=== PATIENT | male | born 1950 | race Caucasian/White ===

== ENCOUNTER → 2016-06-29 07:44 | Outpatient (CLI) | payer MEDICARE ==
[2016-06-29 08:10] LABS: BASOPHILS 0.2 % (0.0-2.0); EOSINOPHILS 4.2 % (0-7); HEMOGLOBIN 14.5 g/dL (13.5-17.5); IMMATURE GRANULOCYTES 0.2 % (0-5); LYMPHOCYTES 29.9 % (15-50); MCH 30.2 pg (26.0-34.0); MCHC 33.7 g/dL (31.0-37.0); MCV 89.6 fL (80.0-100.0); MEAN PLATELET VOLUME 9.9 fL (7.4-10.4); MONOCYTES 12.1 % (2-11); NEUTROPHILS 53.4 % (40-80); PLATELET COUNT 167 10x3/uL (130-400); RDW 12.8 % (11.5-14.5)
[2016-06-29 08:43] LABS: ALBUMIN 3.9 g/dL (3.4-5.0); ANION GAP 11.2 mmol/L (8-16); BILIRUBIN - TOTAL 0.48 mg/dL (0.2-1.3); CALCIUM 9.1 mg/dL (8.5-10.1); CARBON DIOXIDE 30.2 mmol/L (21.0-32.0); CREATININE - SERUM 1.4 mg/dL (0.6-1.3); POTASSIUM - SERUM 4.4 mmol/L (3.5-5.1); PROTEIN - SERUM 6.7 g/dL (6.4-8.2)
== END | disposition home or self-care (01) ==
LOC: D.US 07:44
PROVIDERS: Internal Medicine Gastroenterology
DX: R10.11 Right upper quadrant pain (principal); K21.9 Gastro-esophageal reflux disease without esophagitis; R11.0 Nausea

== ENCOUNTER → 2016-07-09 11:38 | Outpatient (CLI) | payer MEDICARE | END | disposition home or self-care (01) | LOC: D.NM 08:00 | DX: K21.9 Gastro-esophageal reflux disease without esophagitis (principal); R10.9 Unspecified abdominal pain; R11.0 Nausea ==

== ENCOUNTER → 2016-09-20 07:49 | Outpatient (CLI) | payer MEDICARE | END | disposition home or self-care (01) | LOC: D.RAD 07:49 | DX: K21.9 Gastro-esophageal reflux disease without esophagitis (principal) ==

== ENCOUNTER 2016-10-28 05:09 | Day surgery (SDC) | payer MEDICARE ==
[~2016-10-28] VITALS: Ht 177.8 cm; Wt 65.8 kg
[2016-10-28] VITALS (11 sets, daily range): BP systolic 95–150; BP diastolic 42–88; BMI 23.7; BMI 20.8
--- NOTE | ~2016-10-28 | OP ---
PATIENT NAME: IKER EPPERSNO MEDICAL RECORD: [id number] :52 LOCATION:D.[id number] ADMISSION DATE: SURGEON: BIB EVERETT MD DATE OF OPERATION: 10/28/2016 PREOPERATIVE DIAGNOSIS: Gastroesophageal reflux disease. POSTOPERATIVE DIAGNOSIS: Gastroesophageal reflux disease. PROCEDURE: Laparoscopic Matthias fundoplication. SURGEON: Bib Everett MD REPORT OF PROCEDURE: The patient's abdomen was prepped and draped in sterile fashion. An OG tube was placed. A Veress needle was inserted in the left upper quadrant and abdomen was insufflated. An 11-mm Visiport trocar was inserted in the midline just above the umbilicus. Once inside, I could see the Veress needle and there was no sign of any injury to bowel or surrounding structures. This needle was removed. A 12-mm trocar was placed in the left subcostal region. A 5-mm trocar was placed in the epigastrium. A 5-mm trocar was placed in the left lateral abdomen and a final 5-mm trocar was placed in the right lateral abdomen. The liver retractor was inserted and the left lobe of the liver was elevated. The patient had no sign of a hiatal hernia. We began taking down the lesser omentum using Harmonic scalpel. We continued this dissection all the way to the left side of the right melinda. We continued our dissection around the diaphragmatic hiatus and continued anteriorly and posteriorly as far as possible. We then approached the greater curvature of the stomach and took down the short gastric using Harmonic scalpel. We continued this to the left side of the right melinda. At this point, we had a 360-degree inspection of the patient's esophagus. The esophageal hiatus was reapproximated with interrupted 0 Ti-Cron times 3. We then performed a posterior 360 degree wrap of the fundus around the distal end of the esophagus. This was done with interrupted 0 Polydek times 3. The top and bottom sutures incorporated a bite of the esophagus. The wrap appeared to be in good position and did not appear to be too tight. The OG tube was removed with ease. There was no sign of any active bleeding. We irrigated out the abdomen. At the conclusion, we took out the liver retractor and then closed the 11 and 12-mm trocar site fascias using interrupted 0 Vicryls using a Ramon-Susie suture passer device. The ports and insufflation were then removed and we infused a total of 10 mL of 0.25% Marcaine with epinephrine into the surrounding tissues and then closed the skin incision with subcutaneous 5-0 Monocryl. COMPLICATIONS: None. CONDITION: Stable. ANESTHESIA: General endotracheal and local. BLOOD LOSS: Minimal. TRANSINT:[id number] Voice Confirmation ID: [id number] DOCUMENT ID: [id number] OPERATIVE REPORT [id number] IKER EPPERSON CHRISTIAN MD CC: KAYODE CARNEY MD and DION OWENS DO [id number] DICTATION DATE: 10/28/1653 CHURCH ADMINISTRATOR: 10/28/161928 [facility] [address] [place] [address]
[~2016-10-28 05:09] MED LIST: CARAFATE1 G PO; CYMBALTA60 MG PO; OMEPRAZOLE40 MG PO
[2016-10-28 06:09] LABS: BASOPHILS 0.2 % (0-2); EOSINOPHILS 4.5 % (0-7); HEMATOCRIT 42.3 % (42.0-54.0); HEMOGLOBIN 13.9 g/dL (13.5-17.5); IMMATURE GRANULOCYTES 0.2 % (0-5); LYMPHOCYTES 31.5 % (15-50); MCH 29.8 pg (26.0-34.0); MCHC 32.9 g/dL (31.0-37.0); MCV 90.6 fL (80.0-100.0); MONOCYTES 13.4 % (2-11); NEUTROPHILS 50.2 % (40-80); PLATELET COUNT 178 10x3/uL (130-400); RBC 4.67 10x6/uL (4.20-6.10); RDW 13.1 % (11.5-14.5); WBC 5.4 10x3/uL (4.8-10.8)
[2016-10-28 06:23] LABS: ANION GAP 11.3 mmol/L (8-16); CALCIUM 8.6 mg/dL (8.5-10.1); CREATININE - SERUM 1.5 mg/dL (0.6-1.3); POTASSIUM - SERUM 4.3 mmol/L (3.5-5.1)
--- NOTE | 2016-10-28 11:23 | NUR ---
RECIEVED TO ROOM VIA RECOVERY ROOM TEAM VIA STRETCHER. PT AROUSABLE TO VERBAL STIMULI. VS WNL HAS O2 AT 4 LPM SAT 97%
--- NOTE | 2016-10-28 11:28 | NUR ---
DR ZHAO AT BEDSIDE. HE REVIEWED 02 STATUS AND ORDERED A DUONEB UPDRAFT. PATIENT TOLERATED THIS WELL. O2 STATUS IMPROVED 98% POST UPDRAFT.
--- NOTE | 2016-10-28 11:59 | NUR ---
REPORT RECEIVED FROM ELENO SHI. HISTORY AND PHARMACY OBTAINED FROM PATIENT AND PLACED IN CHART. SCDs PLACED TO BLE. IN ROOM. CALL LIGHT IN REACH. WILL CONTINUE WITH PLAN OF CARE. ALSO PLACED NON-TELLER SOCKS ON.
--- NOTE | 2016-10-28 12:22 | NUR ---
URINAL GIVEN TO PATIENT. O2 DOWN TO 2.5L PER NC. O2 SAT 97%.
--- NOTE | 2016-10-28 13:38 | NUR ---
[address] GANG SUPERVISOR INITIATED WITH SETTINGS OF 0.2/10/4. BOLUS OG 0.4MG GIVEN.
--- NOTE | 2016-10-28 15:40 | NUR ---
TYLENOL AND REGLAN IV PER ORDER. CALL LIGHT IN REACH. PAIN IS AT A 4 AT THIS TIME.
--- NOTE | 2016-10-28 16:05 | NUR ---
WEANED TO ROOM AIR. IS NOW 94% ON ROOM AIR.
--- NOTE | 2016-10-28 19:00 | NUR ---
PATIENT RESTING WITH EYES CLOSED. AROUSES TO VOICE. ORIENTED X4. HOB 30 DEGREES. RR EVEN AND UNLABORED. O2 @ 2L VIA NC. 0 S/S OF DISTRESS. STATES PAIN IS A 5/10. IV TO LEFT WRIST PATENT WITH NO REDNESS OR SWELLING. LAP SITES X5 TO ABD WITH BANDAIDS. SCD'S IN ROOM BUT OFF. AT BEDSIDE. SRX1. BED LOW. CALL LIGHT WITHIN REACH.
--- NOTE | 2016-10-28 21:30 | NUR ---
PATIENT UNABLE TO VOID. IN AND OUT CATH YIELDED 700ML. NIGHTTIME MEDS GIVEN. NO OTHER NEEDS AT THIS TIME.
[2016-10-29] VITALS: BP 123/72
[2016-10-29 04:00] VITALS: BP 139/81
[2016-10-29 06:19] LABS: BASOPHILS 0.2 % (0-2); EOSINOPHILS 1.1 % (0-7); HEMATOCRIT 42.8 % (42.0-54.0); IMMATURE GRANULOCYTES 0.2 % (0-5); LYMPHOCYTES 12.8 % (15-50); MCH 30.2 pg (26.0-34.0); MCHC 32.7 g/dL (31.0-37.0); MCV 92.4 fL (80.0-100.0); MEAN PLATELET VOLUME 10.2 fL (7.4-10.4); MONOCYTES 8.7 % (2-11); PLATELET COUNT 179 10x3/uL (130-400); RBC 4.63 10x6/uL (4.20-6.10); RDW 13.5 % (11.5-14.5)
[2016-10-29 06:20] LABS: WBC 10.6 10x3/uL (4.8-10.8)
[2016-10-29 06:21] LABS: ANION GAP 10.5 mmol/L (8-16); CALCIUM 8.2 mg/dL (8.5-10.1); CREATININE - SERUM 1.5 mg/dL (0.6-1.3); POTASSIUM - SERUM 4.5 mmol/L (3.5-5.1)
--- NOTE | 2016-10-29 08:00 | NUR ---
PATIENT AWAKE AND ORIENTED. IT IS NOTED THAT HE HAS 5 BANDAIDS TO HIS ABDOMEN FROM HIS LAP NEESON YESTERDAY. HE HAS VOIDED URINE ON HIS OWN, ABDO SLIGHTLY DISTENED.
[2016-10-29 09:04] VITALS: BP 135/71
--- NOTE | 2016-10-29 10:00 | NUR ---
PATIENT IS AWAKE AND ALERT, HE HAS NO C/O USING HIS XRAY TECH PUMP, SEE MAR. RATES PAIN A 4. PATIENT IS ASKING TO GO HOME.
[2016-10-29 10:41] VITALS: Ht 177.8 cm; Wt 65.8 kg
[2016-10-29 11:40] VITALS: BP 150/86
--- NOTE | 2016-10-29 12:00 | NUR ---
PATIENT GONE FOR SOME TESTING. SPOUSE LAYING IN HIS BED.
[2016-10-29] MEDS ORDERED: REGLAN10 MG PO (12:34)
[2016-10-29] MEDS ORDERED: HYDROCODONE-APA1 TAB PO (12:34)
--- NOTE | 2016-10-29 14:00 | NUR ---
PATIENT IS BACK FROM TEST, CAME BY AND HAS DISCHARGED HIM, HE IS PACKED AND READY TO GO.
[2016-10-29] MEDS ORDERED: FLOMAX0.4 MG PO (15:48)
--- NOTE | 2016-10-29 16:15 | NUR ---
D/C'D PATIENT'S IV, APPLIED 2X2'S, CATH INTACT. D/C INSTRUCTIONS PROVIDED. PATIENT DID ASK ABOUT HIS HOME DIET. HE SAID HE WILL CALL THE DR. HE THINKS HE SAID CLEAR LIQUID TIL HE SEES THE .
--- NOTE | 2016-10-29 16:30 | NUR ---
PATIENT TAKEN VIA W/C TO HIS CAR TO GO HOME.
== END 2016-10-29 16:00 | disposition home or self-care (01) ==
LOC: D.OPS 05:09 → D.MS 05:09 → D.OPS 07:30 → D.MS 09:53 → D.OPS 10-29 16:00
PROVIDERS: Surgery
DX: K21.9 Gastro-esophageal reflux disease without esophagitis (principal); Z01.812 Encounter for preprocedural laboratory examination

== ENCOUNTER → 2017-07-21 14:06 | Outpatient (CLI) | payer MEDICARE ==
[2016-10-29 10:41] VITALS: BMI 20.8
[~2017-07-21 14:06] MED LIST changes: +FLOMAX0.4 MG PO; +HYDROCODONE-APA1 TAB PO; +REGLAN10 MG PO
== END | disposition home or self-care (01) ==
LOC: D.RAD 14:06
DX: R10.9 Unspecified abdominal pain (principal)

== ENCOUNTER → 2017-08-02 12:54 | Outpatient (CLI) | payer MEDICARE ==
[2016-10-29 10:41] VITALS: BMI 20.8
== END | disposition home or self-care (01) ==
LOC: D.CT 12:54
DX: R91.8 Other nonspecific abnormal finding of lung field (principal)

== ENCOUNTER → 2018-06-26 12:20 | Outpatient (CLI) | payer MEDICARE ==
[2016-10-29 10:41] VITALS: BMI 20.8
== END | disposition home or self-care (01) ==
LOC: D.CT 12:20
DX: R91.8 Other nonspecific abnormal finding of lung field (principal)

== ENCOUNTER → 2018-12-25 10:28 | Outpatient (CLI) | payer MEDICARE ==
[2016-10-29 10:41] VITALS: BMI 20.8
== END | disposition home or self-care (01) ==
LOC: D.CT 10:28
PROVIDERS: ATTEND Family Medicine
DX: R91.1 Solitary pulmonary nodule (principal)

== ENCOUNTER → 2019-01-09 14:14 | Outpatient (CLI) | payer MEDICARE ==
[2016-10-29 10:41] VITALS: BMI 20.8
== END | disposition home or self-care (01) ==
LOC: D.HCCARDIO 14:14
PROVIDERS: ATTEND Internal Medicine Cardiovascular Disease
DX: R06.09 Other forms of dyspnea (principal)

== ENCOUNTER → 2019-01-18 09:07 | Outpatient (CLI) | payer MEDICARE ==
[2016-10-29 10:41] VITALS: BMI 20.8
== END | disposition home or self-care (01) ==
LOC: D.HCCARDIO 09:07
PROVIDERS: ATTEND Internal Medicine Cardiovascular Disease
DX: R06.09 Other forms of dyspnea (principal)

== ENCOUNTER 2019-02-01 06:53 | Outpatient (CLI) | payer MEDICARE ==
[~2019-02-01] VITALS: Ht 175.3 cm; Wt 75.0 kg
--- NOTE | ~2019-02-01 | HEMODYNAMI ---
PATIENT:IKER EPPERSON MEDICAL RECORD: [id number] : 52 LOCATION:[facility] ADMISSION DATE: 02/01/19 Generatedon:02/01/20199:28 Patient name: IKER EPPERSON Patient #: [id number] SSN: [id number] : 1950 Date of study: 02/01/2019 Page: Of Hemodynamic Procedure Report Patient Data Patient Demographics Procedure consent was obtained First Name: IKER Gender: Male Last Name: ZHOU : 1950 Middle Initial: JENN Age: 68 year(s) Patient #: [id number] Race: SSN: [id number] Additional ID: [id number] Contact details [address]: [address] [place] [address] State: [place] City: [place] Zip code: [address] Past Medical History Allergies: No known allergies Admission Admission Data Admission Date: 02/01/2019 Admission Time: 6:53 Arrival Date: 02/01/2019 Arrival Time: 0:00 [facility] #: [id number] Height (in.): 69 BSA: 1.92 (m2) Height (cm.): 175.26 BMI: 24.81 (kg/m2) Weight (lbs.): 168 Weight (kg.): 76.2 Lab Results Lab Result Date: 02/01/2019 Lab Result Time: 0:00 Biochemistry Name Units Result Min Max BUN mg/dl 21 --(----)-* 7 18 Creatinine mg/dl 1.4 --(----)*- 0.6 1.3 eGFR ml/min 54 *-(----)-- 90 120 NONAFRICAN CBC Name Units Result Min Max Hematocrit % 45.6 --(-*--)-- 42 54 Hemoglobin g/dl 16.1 --(--*-)-- 13.5 17.5 Procedure Procedure Types Cath Procedure Diagnostic Procedure LHC LHC w/Coronaries Procedure Description Procedure Date Procedure Date: 02/01/2019 Procedure Start Time: 9:15 Procedure End Time: 9:27 Procedure Staff Name Function Naveen Henderson MD Performing Physician Karissa Bond RN Nurse Urbano Beal RT Monitor Nano Perez RT Scrub Procedure Data Cath Procedure Fluoroscopy Diagnostic fluoroscopy Total fluoroscopy Time: 1.6 time: 1.6 min min Diagnostic fluoroscopy Total fluoroscopy dose: 637 dose: 637 mGy mGy Contrast Material Contrast Material Type Amount (ml) Isovue 300 46 Entry Location Entry Primary Successful Side Size Upsize Upsize Entry Closure Succes sful Closure Location (Fr) 1 (Fr) 2 (Fr) Remarks Device Remarks Femoral Right 5 Fr Exoseal artery Estimated blood loss: 5 ml Diagnostic catheters Device Type Used For End Catheter Placement MULTIPACK JL 4.0 5Fr Procedure catheter MULTIPACK 3DRC 5Fr Procedure catheter MULTIPACK Pigtail 5 Fr Procedure catheter Procedure Complications No complications Procedure Medications Medication Administration Route Dosage 0.9% NaCl I.V. 100 ml/hr Oxygen etCO2 Nasal cannula 2 l/min Lidocaine 2% added to field 20 Heparin Flush Bag added to field 2 bags (1000units/500ml NS) Versed I.V. 2 mg Fentanyl I.V. 50 mcg Hemodynamics Rest BSA: 1.92 (m2) O2 Consumption: Estimated: 219.62 (ml/min) O2 Consumption indexed : Estimated:114.39 (ml/min/m) Heart Rate: 65 (bpm) Pressure Samples Time Site Value (mmHg) Purpose Heart Use Rate(bpm) 9:24 LV 138/-7,15 Snapshot 78 9:25 AO 144/75(105) Pullback 95 9:25 LV 158/7,18 Pullback 95 Gradients Valve Time Site 1 Site 2 Mean SEP/DFP Peak To Heart Use (mmHg) (sec/min) Peak Rate (mmHg) (bpm) Aortic 9:25 LV AO 7 5 14 95 158/7,18 144/75(105) Calculations Valve P-P Mean Valve Index Valve Source Name Gradient Area Flow (cm2) Aortic 14 7 14 7 Snapshots Pre Cath Intra NCS Post Cath Vital Signs Time Heart Resp SPO2 etCO2 NIBP (mmHg) Rhythm Pain Sedation Rate (ipm) (%) (mmHg) Status Level (bpm) 8:53:47 81 16 98 30 143/67(80) NSR 0 (11) 10(A) , No pain 8:57:36 73 11 98 36 135/89(111) NSR 0 (11) 10(A) , No pain 9:01:24 66 13 98 31.5 118/81(99) NSR 0 (11) 10(A) , No pain 9:05:34 73 18 98 34.5 120/78(97) NSR 0 (11) 10(A) , No pain 9:09:21 68 12 99 26.2 111/76(95) NSR 0 (11) 10(A) , No pain 9:14:06 71 10 99 33.8 135/72(95) NSR 0 (11) 10(A) , No pain 9:17:53 81 15 99 33 118/76(97) NSR 0 (11) 9(A) , No pain 9:21:40 92 16 99 33.8 124/77(99) NSR 0 (11) 9(A) , No pain 9:25:54 97 13 100 35.3 126/74(91) NSR 0 (11) 10(A) , No pain Medications Time Medication Route Dose Verified Delivered Reason Notes Effe ctiveness by by 8:55:26 0.9% NaCl I.V. 100 Naveen Karissa used for ml/hr Santiago Bond desktop specialist 8:55:34 Oxygen etCO2 2 Naveen Karissa used for Nasal l/min Santiago Bond procedure cannula RN 8:55:38 Lidocaine 2% added 20ml Naveen Naveen for local to vial Santiago Henderson MD anesthetic field 8:55:43 Heparin Flush added 2 Naveen Naveen used for Bag to bags Santiago Henderson MD procedure (1000units/500ml field NS) 9:15:21 Versed I.V. 2 mg Naveen Karissa for Santiago Bond sedation RN 9:15:29 Fentanyl I.V. 50 Naveen Karissa for mcg Santiago Bond sedation runner on Log Time Note 8:11:30 Informed consent obtained and on chart 8:14:25 Patient allergic to No known allergies 8:14:37 Patient Weight : 168 lbs 8:14:39 Patient Height : 69 inches 8:14:45 Arrival Date: 02/01/2019 12:00:00 AM 8:28:48 Procedure Status Elective Heart Cath (OP). 8:30:28 Lab Result : BUN 21 mg/dl 8:: Lab Result : Creatinine 1.4 mg/dl 8:: Lab Result : Hemoglobin 16.1 g/dl :: Lab Result : eGFR NONAFRICAN 54 ml/min :: Lab Result : Hematocrit 45.6 % 8:38:23 Karissa Bond RN sent for patient. Start room use. 8:38:24 Time tracking: Regular hours (M-F 7:00 - 5:00) 8:38:29 Plan of Care:Hemodynamics will remain stable., Cardiac rhythm will remain stable., Comfort level will be maintained., Respiratory function will remain adequate., Patient/ family verbilizes understanding of procedure., Procedure tolerated without complication., Recovers from procedure without complications.. 8:47:02 Patient received from Pre/Post Procedure Room to [facility] Alert and oriented. Tansferred to table in Supine position. 8:47:04 Warm blankets applied, and skip hugger turned on for patient comfort. 8:47:04 Correct patient and procedure confirmed by team. 8:47:04 ECG and BP/O2 sat monitors applied to patient. 8:52:51 Vital chart was started 8:55:26 0.9% NaCl 100 ml/hr I.V. was administered by Karissa Bond RN; used for procedure; 8:55:34 Oxygen 2 l/min etCO2 Nasal cannula was administered by Karissa Bond RN; used for procedure; 8:55:38 Lidocaine 2% 20ml vial added to field was administered by Naveen Henderson MD; for local anesthetic; 8:55:43 Heparin Flush Bag (1000units/500ml NS) 2 bags added to field was administered by Naveen Henderson MD; used for procedure; 8:56:43 Baseline sample Acquired. 8:56:46 Rhythm: sinus rhythm 8:56:47 Full Disclosure recording started 8:56:58 H&P Date Dictated: 01/23/2019 Within 30 days and on chart., H&P Addendum completed by physician on day of procedure. (MUST COMPLETE FOR ALL OUTPATIENTS). 8:56:59 Pre-procedure instructions explained to patient. 8:56:59 Pre-op teaching completed and patient verbalized understanding. 8:57:01 Family in waiting room. 8:57:11 Patient NPO since Midnight. 8:57:17 Is the patient allergic to Iodine/contrast media? No. 8:58:18 Is patient on blood thinner?No 8:58:19 Patient diabetic? No. 8:58:22 Previous problem with sedation/anesthesia? No ? 8:58:23 Snore? Yes 8:58:24 Sleep apnea? No 8:58:25 Deviated septum? No 8:58:26 Opens mouth fully? Yes 8:58:26 Sticks out tongue? Yes 8:58:28 Airway obstruction? No ? 8:58:30 Dentures? No ? 8:58:33 Pre procedure: right dorsailis pedis pulse 2+ Normal; easily identifiable; not easily obliterated 8:58:36 Modified Johnathon's test Ulnar > 7 seconds. 8:58:37 Patient pain scale 0/10 ?. 8:58:42 IV patent on arrival in right forearm with 0.9% NaCl at KVO. 8:58:44 Lab results completed and on chart. 8:58:47 Right groin area was prepped with chlora-prep and draped in sterile fashion 8:58:48 Alarms reviewed by R. N. 8:58:48 Sharps counted by scrub and verified by R.N. 8:58:50 Use device set Femoral Dx 8:58:51 ACIST Syringe (28407) opened to sterile field. 8:58:51 Bag Decanter (2002S) opened to sterile field. 8:58:51 Medline Cath Pack ([id number]) opened to sterile field. 8:58:53 ACIST Hand Control (76863) opened to sterile field. 8:58:53 ACIST Manifold (92085) opened to sterile field. 8:59:00 SHEATH 5FR [place] (HXW291) opened to sterile field. 8:59:02 DIAGNOSTIC Multipack 5Fr catheter set ([id number]) opened to sterile field. 8:59:03 EMERALD Guide Wire (502-826) opened to sterile field. 9:07:47 Zero performed for pressure channel P1 9:14:49 Physician arrived 9:14:50 --------ALL STOP TIME OUT------ 9:14:50 Final Timeout: patient, procedure, and site verified with staff and physician. All members of the team are in agreement. 9:14:51 Right groin site verified by team. 9:14:54 Fire Safety Assessment: A--An alcohol-based skin anteseptic being used preoperatively., C--Open oxygen or nitrous oxide is being used., D--An ESU, laser, or fiber-optic light is being used. 9:14:57 Physical assessment completed. ASA score P 2 - A patient with mild systemic disease as per Naveen Henderson MD. 9:15:05 3a) 45-59 Moderately reduced kidney function. 9:15:21 Versed 2 mg I.V. was administered by Karissa Bond RN; for sedation; 9:15:29 Fentanyl 50 mcg I.V. was administered by Karissa Bond RN; for sedation; 9:15:32 Maximum allowable contrast dose (3.7 X eGFR X 0.75)150 ml. 9:15:35 Sedation plan: IV Moderate Sedation Medication:Versed, Fentanyl 9:15:45 Procedure started. 9:15:49 Local anesthetic to right femoral artery with Lidocaine 2% by Naveen Henderson MD.INITIAL ACCESS ONLY 9:17:05 Tegaderm 4 x 4 (1626W) opened to sterile field. 9:17:55 A 5 Fr sheath was inserted into the Right Femoral artery 9:19:11 A MULTIPACK JL 4.0 5Fr catheter was advanced over the wire and used for Procedure. 9:20:13 LCA angiography performed. 9:21:01 ACCDominant side:Left 9:21:59 Catheter exchanged over wire. 9:22:04 A MULTIPACK 3DRC 5Fr catheter was advanced over the wire and used for Procedure. 9:22:31 RCA angiography performed. 9:22:56 Catheter exchanged over wire. 9:23:00 A MULTIPACK Pigtail 5 Fr catheter was advanced over the wire and used for Procedure. 9:23:40 EXOSEAL 5Fr (EX500) opened to sterile field. 9:24:59 LV gram done using DOS SANTOS 9:25:02 Injector settings: Ml/sec: 10, Volume: 20, 9:25:03 LV hemodynamics recorded. 9:25:11 EF : 55 % 9:25:24 Catheter removed. 9:25:35 Sheath removed intact; hemostasis achieved with Exoseal to the Right Femoral artery. 9:25:37 Procedure ended.(Physican Out) 9:26:12 Fluoroscopy time 01.60 minutes. 9:26:18 Fluoroscopy dose: 637 mGy 9:26:18 Flurop Dose total: 637 9:26:25 Dose Area Product 98874 mGy/cm. 9:26:35 Contrast amount:Isovue 300 46ml. 9:26:38 Maximum allowable dose exceeded? No. 9:26:39 Sharps counted by scrub and verified by R.N. 9:26:39 Insertion/operative site no bleeding no hematoma. 9:26:42 Post-op/insertion site Right Femoral artery dressed using a 4 x 4 and Tegaderm. 9:26:45 Post right femoral artery:stable, soft, clean and dry 9:26:48 Post Procedure Pulses reassessed and unchanged 9:26:50 Post-procedure physical assessment completed. ASA score P 2 - A patient with mild systemic disease as per Naveen Henderson MD. 9:26:52 Post procedure rhythm: unchanged. 9:26:54 Estimated blood loss: 5 ml 9:26:55 Post procedure instruction explained to patient.Patient verbalizes understanding. 9:26:56 Patient needs reinforcement of post procedure teaching. 9:27:15 Procedure and supply charges have been captured, reviewed, submitted and are correct. 9:27:17 Procedure Complication : No complications 9:27:19 Vital chart was stopped 9:27:19 See physician's report for complete and final results. 9:27:20 Report given to Pre/Post Procedure Room. 9:27:22 Patient transfered to Pre/Post Procedure Room with Stretcher. 9:27:23 Procedure ended. 9:27:23 Full Disclosure recording stopped 9:27:28 End room use (Document Last) Device Usage Item Name Manufacture Quantity Catalog Hospital Part Current Minimal L ot# / Number Charge Number Stock Stock Serial# Code ACIST Acist 1 87223 882607 905380 323634 20 Syringe Medical (22434) Systems Inc Bag Microtek 1 247447 50897 214519 5 Decanter Medical Inc. () Medline Medline 1 [id number] 048224 05954 953856 5 Cath Pack ([id number]) ACIST Hand Acist 1 24219 481378 197094 830448 5 Control Medical (78036) Systems Inc ACIST Acist 1 63061 113919 352898 211999 5 Manifold Medical (47164) Systems Inc SHEATH 5FR Terumo 1 [id number] 091417 760376 442010 5 [place] (NNT692) DIAGNOSTIC Cardinal 1 LN7118 216289 60347 520683 30 Multipack Health 5Fr catheter set (XN9454) EMERALD Cardinal 1 502-455 797969 756818 494016 5 Guide Wire Health (502455) Tegaderm 4 3M 1 1626W 634943 211761 772276 5 x 4 (1626W) MULTIPACK Cardinal 1 177901 5 JL 4.0 5Fr Health catheter MULTIPACK Cardinal 1 [id number] 5 3DRC 5Fr Health catheter MULTIPACK Cardinal 1 899855 5 Pigtail 5 Health Fr catheter EXOSEAL 5Fr Cardinal 1 EX500 614955 116972 011506 10 (EX500) Health Signature Audit [place] Stage Time Signature Unsigned Intra-Procedure 02/01/2019 Urbano Beal 9:28:11 AM RT(R) Signatures Performing Physician : Signature : Naveen Henderson MD Date : Time : Nurse : Karissa Bond RN Signature : Date : Time : Monitor : Urbano Beal RT Signature : Date : Time : [place] [address] [place] [address]
[2019-02-01] MEDS ORDERED: KLONOPIN1 MG PO (07:36)
[2019-02-01 07:46] VITALS: BP 127/88; Ht 175.3 cm; Wt 75.0 kg
[2019-02-01 07:56] LABS: BASOPHILS 0.6 % (0-2); EOSINOPHILS 7.7 % (0-7); HEMATOCRIT 45.6 % (42.0-54.0); HEMOGLOBIN 16.1 g/dL (13.5-17.5); IMMATURE GRANULOCYTES 0.2 % (0-5); LYMPHOCYTES 34.9 % (15-50); MCH 31.8 pg (26.0-34.0); MCHC 35.3 g/dL (31.0-37.0); MCV 89.9 fL (80.0-100.0); MEAN PLATELET VOLUME 9.9 fL (7.4-10.4); MONOCYTES 12.4 % (2-11); NEUTROPHILS 44.2 % (40-80); PLATELET COUNT 181 10x3/uL (130-400); RBC 5.07 10x6/uL (4.20-6.10); RDW 12.9 % (11.5-14.5); WBC 5.3 10x3/uL (4.8-10.8)
[2019-02-01 08:08] LABS: CALCIUM 8.8 mg/dL (8.5-10.1); CARBON DIOXIDE 27.2 mmol/L (21.0-32.0); CREATININE - SERUM 1.4 mg/dL (0.6-1.3); LDL-HDL RATIO 1.8 ratio (1.5-3.5); POTASSIUM - SERUM 4.2 mmol/L (3.5-5.1)
--- NOTE | 2019-02-01 09:38 | NUR ---
PATIENT ARRIVED BY STRETCHER. PLACED ON MONITORS. ASSESSMENT COMPLETED. VSS. CALL LIGHT WITHIN REACH.
--- NOTE | 2019-02-01 09:53 | NUR ---
RIGHT GROIN DRESSING C/D/I. NO S/S OF HEMATOMA NOTED. CALL LIGHT WITHIN REACH. FAMILY AT BEDSIDE.
--- NOTE | 2019-02-01 10:30 | NUR ---
RIGHT GROIN DRESSING C/D/I. NO S/S OF HEMATOMA NOTED. VSS. PT'S HEAD OF BED INC TO 30 DEGREES. SET UP WITH DRINK AND SANDWICH TRAY. FAMILY AT BEDSIDE.
--- NOTE | 2019-02-01 11:00 | NUR ---
RIGHT ARM PIV D/C'D WITH CATH TIP INTACT. PT TOLERATED WELL. RIGHT GROIN DRESSING C/D/I. NO S/S OF HEMATOMA NOTED. PT INSTRUCTED TO GET UP AND DRESSED. FAMILY AT BEDSIDE TO ASSIST. CALL LIGHT WITHIN REACH.
--- NOTE | 2019-02-01 11:11 | NUR ---
PT AMBULATED TO RESTROOM. VOIDED WITHOUT DIFFICULTY.
--- NOTE | 2019-02-01 11:28 | NUR ---
DISCUSSED DISCHARGE INSTRUCTIONS WITH PT AND PT'S FAMILY. THEY VOICED UNDERSTANDING. RIGHT GROIN DRESSING C/D/I. NO S/S OF HEMATOMA NOTED. WAITING ON DR. OSPINA TO ROUND BEFORE DISCHARGE HOME.
--- NOTE | 2019-02-01 12:00 | NUR ---
DR. OSPINA AT BEDSIDE AND SPOKE WITH PT AND PT'S FAMILY. PT TAKEN OUT TO VEHICLE BY WHEELCHAIR. ALL BELONGINGS AND PAPERWORK IN HAND. NO S/S OF DISTRESS NOTED.
== END 2019-02-01 12:00 | disposition home or self-care (01) ==
LOC: D.CATH 06:53
PROVIDERS: ATTEND Internal Medicine Cardiovascular Disease
DX: I20.9 Angina pectoris, unspecified (principal); Z01.812 Encounter for preprocedural laboratory examination